=== PATIENT | male | born 1970 | race Caucasian/White ===

== ENCOUNTER 2024-09-26 13:11 | Emergency (ER) | payer OTHER ==
[~2024-09-26] VITALS: Ht 180.3 cm; Wt 131.5 kg
[2024-09-26] MEDS ORDERED: AZITHROMYCIN 250 MG TAB PO ONE (13:55)
[2024-09-26] MEDS ORDERED: ACETAMINOPHEN 500 MG TAB PO ONE (13:55)
[2024-09-26 14:14] LABS: BASO # 0.1 10*3/uL (0.0-0.1); BASO % 0.4 % (0.0-1.0); EOS # 0.2 10*3/uL (0.0-0.4); EOS % 1.3 % (1.0-4.0); HEMATOCRIT 39.8 % (42.0-52.0); MEAN CELL VOLUME 89.4 fl (80.0-94.0); MEAN CORPUSCULAR HGB 29.4 pg (27.0-31.0); MEAN CORPUSCULAR HGB CONC 32.9 g/dl (33.0-37.0); MEAN PLATELET VOLUME 9.7 fl (9.6-12.3); MONO # 0.8 10*3/uL (0.1-1.0); MONO % 4.8 % (3.0-9.0); NEUT # 13.2 10*3/uL (2.3-7.9); PLATELET COUNT AUTOMATED 354 10*3/uL (130-400); RED BLOOD COUNT 4.45 10*6/uL (4.50-5.90); RED CELL DISTRI WIDTH 12.4 % (0-14.5); WHITE BLOOD COUNT 16.4 10*3/uL (4.8-10.8)
[2024-09-26 14:37] LABS: ALKALINE PHOSPHATASE 133 U/L (46-116); BUN 13 mg/dl (9-23); CHLORIDE 108 mmol/L (98-107); POTASSIUM 4.5 mmol/L (3.4-5.1); SGPT/ALT 23 U/L (5-49); TOTAL PROTEIN 7.1 gm/dL (6.0-8.0)
[2024-09-26] MEDS ORDERED: Ondansetron Hydrochloride 4 MG/2 ML VIAL IM ONE (15:50)
[2024-09-26] MEDS ORDERED: diphenhydrAMINE hydrochloride 50 MG/ML VIAL IM ONE (15:50)
[2024-09-26] MEDS ORDERED: Ketorolac Tromethamine 15 MG/ML VIAL IM ONE (15:50)
[2024-09-26] MEDS ORDERED: AVPAK AZITHROM250 M1 PO (16:54)
== END 2024-09-26 17:13 | disposition home or self-care (01) ==
LOC: ED 13:11
PROVIDERS: Internal Medicine
DX: J40 Bronchitis, not specified as acute or chronic (principal); Z20.822 Contact with and (suspected) exposure to COVID-19; F17.210 Nicotine dependence, cigarettes, uncomplicated; Z88.0 Allergy status to penicillin